=== PATIENT | female | born 1970 ===

== ENCOUNTER 2025-08-03 15:50 | Outpatient (AMB) | payer BC, SELFPAY ==
--- OUTSIDE RECORDS SUMMARY | 2025-08-03 17:43 | XMS_ITS | Clinical Summary ---
Author Organization [facility] [address] [facility] Address [address] [place] [address] Care Team Providers Care Motor Vehicle Or Caravan Salesperson Name Role Phone Pedro Bay MD Primary Care Provider [phone] Allergies No known active allergies Medications cephALEXin (KEFLEX) 500 mg capsule Take 1 capsule (500 mg total) by mouth 4 (four) times daily. 40 capsule 07/15/2021 Active Social History Tobacco Use Types Packs/Day Years Used Date Smoking Tobacco: Former Smokeless Tobacco: Never Comments Unknown Sex and Gender Information Value Date Recorded Sex Assigned at Female 07/15/2021 11:52 AM EDT Legal Sex Female 11:46 AM EDT Gender Identity Female 07/15/2021 11:52 AM EDT Sexual Orientation Straight 07/15/2021 11 :52 AM EDT Last Filed Vital Signs Vital Sign Reading Time Taken Comments Blood Pressure 135/92 07/15/2021 11:57 AM EDT Pulse 89 07/15/2021 11:57 AM EDT Temperature 36.6 C (97.9 F) 07/15/2021 11:57 AM EDT Respiratory Rate 20 07/15/2021 11:57 AM EDT Oxygen Saturation 96% 07/15/2021 11:57 AM EDT Inhaled Oxygen Concentration - - Weight 74.8 kg (165 lb) 07/15/2021 11:57 AM EDT Height - - Body Mass Index - - Plan of Treatment Health Maintenance Due Date Last Done Comments HIV screening 1983 Hepatitis C screening 1988 Tetanus adult (Td q 10,TDAP once) 1990 Cervical cancer screening 1991 Breast cancer screening 2010 Lipid disorder screening 2010 Colon cancer screening, Colonoscopy 2015 Diabetes screening 2015 Pneumococcal Vaccine (50+ ye ars) (1 of 1 - PCV) 2020 Shingles vaccine (Shingrix) (1 of 2 - Shingrix (RZV) 2 Dose Standard Series) 2020 Covid-19 vaccine series (1 - 2023- season) 2025 Influenza vaccine 08/01/2025 RSV Immunization (1 - 1-dose 75+ series) 2045 Meningococcal B Vaccine Aged Out No l onger eligible based on patient's age to complete this topic Meningococcal Vaccine Aged Out No phill joslyn eligible based on patient's age to complete this topic Insurance [facility] BC[facility] Care Teams Motor Vehicle Or Caravan Salesperson Relationship Specialty Start Date End Date Pedro Bay MD [address] [place] [address] REJI Jackson [address] PCP - General Internal Medicine 07/15/21
--- OUTSIDE RECORDS SUMMARY | 2025-08-03 17:43 | XMS_ITS | Patient Health Record ---
Author Organization [facility] Address [address] [facility] [place] [address] Care Team Providers Care Math And Science Division Chair Name Role Phone Pedro Bay Primary Care Provider Ariella Santamaria Unavailable [phone] Reason For Referral No Information Medications Medication SIG (Take, Route, Frequency, Duration) Notes Start Date End Date Status Magnesium 2 gummies per day Ac tive Elderberry 3 gummies per day A ctive Multivitamin 2 gummies per day Active Feldene 20 MG 1 capsule with food Orally Once a day; Duration: 14 days 01/02/2022 Active Turmeric 2 gummies per day Ac tive Immunizations Vaccine Route Administration Date Status Comme nts COVID-19 Moderna Vaccine Unknown 10/22/2021 Administered First Dose: 03/22/2021 Second Dose:04/19/2021 Social History Tobacco Use: Social History Observation Description Date Details (start date - stop date) Former Smoker NA - 12/31/2011 Tobacco Use/Smoking Question Answer Notes Are you a: former smoker When did you stop smoking? 12/31/2011 Additional Findings: Tobacco Non-User Ex-cigaret te smoker Alcohol Screen Question Answer Notes Did you have a drink contain ing alcohol in the past year? Yes How often did you have a dri nk containing alcohol in the past year? 2 to 4 times a month (2 points) Points 2 Interpretation Negative Tobacco use other than smoking: Question Answer Notes Are you an other tobacco user? No Plan Of Treatment Pending Test Test Name Order Date X ray : Ankle, right 2V 01/02/2022 X ray : Foot, right 2V 01/02/2022 Insurance Providers Payer Name Payer Address Payer Phone Subscriber Number Group Number Insured Name Patient Relationship to Insured Coverage Start Date Coverage End Date [facility] [address] [place] [address] [id number] Carmen Castillo Self - patient is the insured Medical (General) History Medical History History ICD Code Back,Hip,and Knee pain Broken bones High blood pressure Osteoporosis Chicken pox Surgical History Surgery Date(Month/Year) colonoscopy- every five years wisdom teeth extraction
--- OUTSIDE RECORDS SUMMARY | 2025-08-03 17:43 | XMS_ITS | Clinical Summary ---
Author Organization [facility] Address [address] [place] [address] Care Team Providers Care Boot Turner Name Role Phone Unavailable Primary Care Provider Unavailabl e Social History Tobacco Use Types Packs/Day Years Used Date Smoking Tobacco: Never Assessed Sex and Gender Information Value Date Recorded Sex Assigned at Not on file Gender Identity Not on file Sexual Orientation Not on file Plan of Treatment Health Maintenance Due Date Last Done Comments Hepatitis B Vaccines (1 of 3 - 3-dose series) 1970 Hepatitis C Screening 1970 COVID-19 Vaccine (#1) 01/16/1971 Depression Screening 1982 Preventative Health Evaluation 1988 DTap / Tdap / Td (1 - Tdap) 1989 Cervical Cancer Screening (P ap Smear) 1991 Colon Cancer Screening (Colonoscopy) 2015 Breast Cancer Screening (Mammogram) 2020 Shingrix-Zoster Vaccine (1 of 2) 2020 Influenza Vaccine (#1) 2025 Pneumococcal Vaccine Aged Out No long er eligible based on patient's age to complete this topic RSV Ped < 20 months Aged Out No longe r eligible based on patient's age to complete this topic
== END 2025-08-03 15:52 | disposition home or self-care (01) ==
LOC: HO.HMGAL 15:50
PROVIDERS: PCP Internal Medicine; Visit Provider Registered Nurse Emergency
DX: J30.89 Other allergic rhinitis (principal)
CPT/HCPCS: 95117; 95165

== ENCOUNTER 2025-09-14 14:48 | Outpatient (AMB) | payer BC, SELFPAY ==
--- OUTSIDE RECORDS SUMMARY | 2025-09-14 18:30 | XMS_ITS | Clinical Summary ---
Author Organization [facility] [address] [facility] Address [address] [place] [address] Care Team Providers Care Guitar Player Name Role Phone Pedro Bay MD Primary Care Provider [phone] Allergies No known active allergies Medications cephALEXin [...] Shingrix (RZV) 2 Dose Standard Series) 2020 Influenza vaccine 07/01/2025 Covid-19 vaccine series (1 - 2023- season) 2025 RSV Immunization (1 - 1-dose 75+ series) 2045 Meningococcal B Vaccine Aged Out No l onger eligible based on patient's age to complete this topic Meningococcal Vaccine Aged Out No phill joslyn eligible based on patient's age to complete this topic Insurance [facility] BCBS Care Teams Guitar Player Relationship Specialty Start Date End Date Pedro Bay MD [address] [place] [address] REJI Jackson [address] PCP - General Internal Medicine 07/15/21
--- OUTSIDE RECORDS SUMMARY | 2025-09-14 18:30 | XMS_ITS | Clinical Summary ---
Author Organization [facility] Address [address] [place] [address] Care Team Providers Care Contract Admin Name Role Phone Unavailable Primary Care Provider [...]
--- OUTSIDE RECORDS SUMMARY | 2025-09-14 18:30 | XMS_ITS | Patient Health Record ---
Author Organization [facility] Address [address] [place] [address] Care Team Providers Care Video Photographer Name Role Phone Pedro Bay Primary Care Provider Ariella Santamaria Unavailable [phone] Reason For Referral No Information Medications Medication [...] Insured Coverage Start Date Coverage End Date [facility] [address] [place] [address] [id number] Carmen Castillo Self - patient is the insured Medical (General) History Medical History History ICD Code Back,Hip,and Knee pain Broken bones High blood pressure Osteoporosis Chicken pox Surgical History Surgery Date(Month/Year) colonoscopy- every five years wisdom teeth extraction
== END 2025-09-14 14:51 | disposition home or self-care (01) ==
LOC: HO.HMGAL 14:48
PROVIDERS: PCP Internal Medicine; Visit Provider Registered Nurse Emergency
DX: J30.89 Other allergic rhinitis (principal)
CPT/HCPCS: 95117; 95165

== ENCOUNTER 2025-10-24 13:36 | Outpatient (AMB) | payer BC, SELFPAY ==
--- OUTSIDE RECORDS SUMMARY | 2025-10-24 18:23 | XMS_ITS | Clinical Summary ---
Author Organization [facility] Address [address] [place] [address] Care Team Providers Care Nurse Aide Evaluator Name Role Phone Unavailable Primary Care Provider [...]
--- OUTSIDE RECORDS SUMMARY | 2025-10-24 18:23 | XMS_ITS | Clinical Summary ---
Author Organization [facility] [address] [facility] Address [address] [place] [address] Care Team Providers Care Cable Swager Name Role Phone Pedro Bay MD Primary Care Provider [phone] Allergies No known active allergies Medications cephALEXin [...] vaccine 07/01/2025 Covid-19 vaccine series (1 - 2024- season) 2025 RSV Immunization (1 - 1-dose 75+ series) 2045 Meningococcal B Vaccine Aged Out No l onger eligible based on patient's age to complete this topic Meningococcal Vaccine Aged Out No phill joslyn eligible based on patient's age to complete this topic Insurance [facility] BCBS Care Teams Cable Swager Relationship Specialty Start Date End Date Pedro Bay MD [address] [place] [address] REJI Jackson [address] PCP - General Internal Medicine 07/15/21
== END 2025-10-24 13:37 | disposition home or self-care (01) ==
LOC: HO.HMGAL 13:36
PROVIDERS: PCP Internal Medicine; Visit Provider Registered Nurse Emergency
DX: J30.89 Other allergic rhinitis (principal)
CPT/HCPCS: 95117; 95165